=== PATIENT | male | born 1995 | race Caucasian/White ===

== ENCOUNTER → 2021-05-25 13:48 | Emergency (ER) | payer SELFPAY | LOC: UTC 13:57 → COUGHCL 15:00 | PROVIDERS: Emergency Provider Nurse Practitioner | DX: U07.1 COVID-19 (principal) ==

== ENCOUNTER → 2021-05-25 14:04 | Outpatient (CLI) | payer SELFPAY | PROVIDERS: Visit Provider Nurse Practitioner | DX: Z20.822 Contact with and (suspected) exposure to COVID-19 (principal); U07.1 COVID-19 | CPT/HCPCS: C9803; U0003; U0005 ==

== ENCOUNTER 2022-08-07 22:15 | Emergency (ER) | payer SELFPAY ==
[2022-08-07 22:17] VITALS: BP 160/96; PULSE 99; RESP 16; TEMP 37; O2SAT 99; BMI 22.6
--- NOTE | 2022-08-07 23:03 | [facility].EDSKAF ---
Discharge Plan Disposition Patient Disposition: Home, Self-Care Prescriptions Prescriptions: New sulfamethoxazole-trimethoprim [Bactrim DS] 800-160 mg Tablet 1 tab PO Q12H Qty: 20 0RF Referrals Follow up/Referrals: Provider,Referral, [Primary Care Provider] - See instructions Clinical Impressions Clinical Impression: Cellulitis Instructions Patient Instructions: DI for Skin Abscess Discharge ED Provider: Henry Goodwin Skin/Abscess/FB HPI General Chief complaint: Skin/Abscess/Foreign Body Stated complaint: ao 08/05 SPIDER BITE LEFT SIDE Time Seen by Provider: 08/07/22 23:03 Mode of Arrival: Ambulatory Source of Information: Patient and Medical Record Limitations: No Limitations Description of Symptoms (Recalled from ER Triage Doc. by RN): pt c/o fo spider bite. pt was chopping fire wood 2 days ago and thought he had a wood chip hit him but over the next 24 hours the pt now has a red space that is warm to the touch raised and appears to have been busted open. pt states that the pain is getting worse. 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 History of Present Illness HPI narrative: skin lesion lt ant abd over the last few days MD complaint: abscess/boil Onset (ago): day(s) Tetanus up to date: unsure Location: chest Severity: moderate Related Data Previous Rx's Medication Instructions Recorded sulfamethoxazole 800 1 tab PO Q12H #20 tabs 08/07/22 mg-trimethoprim 160 mg tablet (Bactrim DS) Allergies Allergy/AdvReac Type Severity Reaction Status Date / Time No Known Allergies Allergy Verified 08/07/22 23:01 [facility] Disclaimer: The information contained in this section may have been updated after the patient was seen, as this information can be updated by other users. Social History Smoking Status: Current every day smoker alcohol intake: never current occupational status: employed Travel in the last 8 weeks: None ROS Obtained: Yes All systems reviewed & no additional complaints except as documented Physical Exam General General appearance: alert Head Head exam: normocephalic Eye Eye exam: Present PERRL and EOMI ENT ENT exam: Present mucous membranes moist Neck Neck exam: Present trachea midline Respiratory Respiratory exam: Absent respiratory distress Cardiovascular Cardiovascular exam: Present regular rate Abdominal Exam Abdominal exam: Present soft Extremities Exam Extremities exam: Present normal inspection Neurological Exam Neurological exam: Present alert, oriented X3 and CN II-XII intact Psychiatric Psychiatric exam: Present normal affect Skin Skin exam: Present other (has small nickel sized area on lt ant chest consistent with mrsa ) Lymphatic Lymphatic Findings: no adenopathy Medical Decision Making Medical Records Medical records reviewed: Yes I reviewed the patient's medical records. Blake Inquiry Pt receiving controlled substance: No Vital Signs: 08/07/22 22:17 Temperature 98.6 F Temperature Source Oral Pulse Rate [Left] 99 H Respiratory Rate 16 Blood Pressure [Right Arm] 160/96 H Blood Pressure Mean [Right Arm] 117 02 Sat by Pulse Oximetry 99 Lab Data Lab results reviewed: Yes I reviewed the patient's lab results. Orders (Tests/Meds): ED MEDICATIONS Generic Name Dose Route Start Last Admin Trade Name Freq PRN Reason Stop Dose Admin Mupirocin 0.5 gm 08/08/22 09:00 08/07/22 23:05 Mupirocin 2% Ointment 22gm Tube TP 09/07/22 08:59 0.5 gm TID GEORGE Administration Discontinued Medications Generic Name Dose Route Start Last Admin Trade Name Freq PRN Reason Stop Dose Admin Trimethoprim/Sulfamethoxazole 1 each 08/07/22 23:01 08/07/22 23:04 Sulfa/Trimethoprim 1 Tablet PO 08/07/22 23:02 1 each ONCE ONE Administration ORDERS Category Date Time Status Wound Culture and Gram Stain Stat Micro 08/07/22 23:05 Ordered Medical Decision Narrative: has cellulitis abd cons
[2022-08-07 23:15] VITALS: BP 160/96; PULSE 101; RESP 16; TEMP 37; O2SAT 98
== END 2022-08-07 23:22 | disposition home or self-care (01) ==
PROVIDERS: Emergency Provider Emergency Medicine
DX: L03.311 Cellulitis of abdominal wall (principal); T63.301A Toxic effect of unspecified spider venom, accidental (unintentional), initial encounter; F17.200 Nicotine dependence, unspecified, uncomplicated; Z86.14 Personal history of Methicillin resistant Staphylococcus aureus infection
CPT/HCPCS: 87070; 87077; 87186; 87205; 99283